=== PATIENT | female | born 1980 | race Caucasian/White ===

== ENCOUNTER 2017-03-14 10:13 | Emergency (ER) | payer BC ==
[2017-03-14 10:16] VITALS: BMI 28.6
[2017-03-14 11:59] LABS: BASO # 0.1 K/uL (0.0-0.2); BASO % 1.1 % (0.0-2.0); EOS # 0.9 K/uL (0.0-0.7); EOS % 12.2 % (0.0-4.0); HEMATOCRIT 37.2 % (34.0-47.0); LYMPH # 1.7 K/uL (1.0-4.3); LYMPH % 24.8 % (20.0-40.0); MEAN CELL VOLUME 88.9 fL (81.0-99.0); MEAN CORPUSCULAR HEMOGLOBIN 29.2 pg (27.0-31.0); MEAN CORPUSCULAR HGB CONC 32.9 g/dL (33.0-37.0); MEAN PLATELET VOLUME 9.7 fL (7.2-11.7); MONO # 0.4 K/uL (0.0-0.8); MONO % 5.7 % (0.0-10.0); RED CELL DISTRIBUTION WIDTH 13.4 % (11.5-14.5)
[2017-03-14 12:00] LABS: RBC URINE 2 /hpf (0-3); URINE BILIRUBIN NEGATIVE (NEGATIVE); URINE BLOOD NEGATIVE (NEGATIVE); URINE COLOR Yellow (YELLOW); URINE GLUCOSE (UA) NORMAL (Normal); URINE KETONE NEGATIVE (NEGATIVE); URINE LEUKOCYTE ESTERASE TRACE Leu/uL (Negative); URINE PROTEIN 1+ mg/dL (NEGATIVE); URINE UROBILINOGEN NORMAL mg/dL (0.2-1.0); WBC URINE 4 /hpf (0-5)
[2017-03-14 12:31] LABS: CHLORIDE 105 mmol/L (98-107); SODIUM 136 mmol/L (132-148)
[2017-03-14 12:34] LABS: ALB/GLOB RATIO 1.4 (1.0-2.1); ALKALINE PHOSPHATASE 43 U/L (38-126); ALT/SGPT 24 U/L (9-52); AST/SGOT 29 U/L (14-36); BILIRUBIN,TOTAL 0.5 mg/dL (0.2-1.3); BLOOD UREA NITROGEN 14 mg/dL (7-17); CARBON DIOXIDE 25 mmol/L (22-30); GFR AFRICAN-AMERICAN > 60; GLUCOSE,RANDOM 93 mg/dL (65-105); TOTAL PROTEIN 6.6 g/dL (6.3-8.3)
[2017-03-14 12:35] LABS: CALCIUM 8.7 mg/dl (8.6-10.4)
[2017-03-14 12:57] LABS: THYROID STIMULATING HORMONE 1.27 mIU/L (0.46-4.68)
--- NOTE | 2017-03-14 13:05 | C.PDOC ---
History Of Present Illness 36 yr old female presents to the ER with complaints of weakness for the past 2 months. Also notes occasional pelvic pain. Pt notes she felt like this when she was previously . States she went to see her PMD when the symptoms started and was told blood reports are negative and she is not . Denies fever, chest pain, SOB, nausea, vomiting, dysuria or incontinence. (-) vaginal discharge (-) back pain (-) vaginal bleeding Time Seen by Provider: 03/14/17 11:15 Chief Complaint (Nursing): Abdominal Pain History Per: Patient History/Exam Limitations: no limitations Onset/Duration Of Symptoms: Persistent (2 months) Past Medical History Reviewed: Historical Data, Nursing Documentation, Vital Signs Vital Signs: Last Vital Signs Temp 97.8 F 03/14/17 14:31 Pulse 68 03/14/17 14:31 Resp 16 03/14/17 14:31 BP 100/62 03/14/17 14:31 Pulse Ox 99 03/14/17 14:31 Family History: States: No Known Family Hx - Social History Hx Alcohol Use: No Hx Substance Use: No - Immunization History Hx Tetanus Toxoid Vaccination: No Hx Influenza Vaccination: No Hx Pneumococcal Vaccination: No Review Of Systems Except As Marked, All Systems Reviewed And Found Negative. Constitutional: Positive for: Weakness. Negative for: Fever Cardiovascular: Negative for: Chest Pain Respiratory: Negative for: Shortness of Breath Gastrointestinal: Negative for: Nausea, Vomiting Genitourinary: Positive for: Pelvic Pain. Negative for: Dysuria, Incontinence Physical Exam - Physical Exam Appears: Non-toxic, No Acute Distress Skin: Warm, Dry, No Rash Head: Atraumatic, Normacephalic Eye(s): bilateral: Normal Inspection, EOMI Nose: Normal Oral Mucosa: Moist Neck: Normal, Normal ROM, Supple Chest: Symmetrical, No Tenderness Cardiovascular: Rhythm Regular, No Murmur Respiratory: Normal Breath Sounds, No Rales, No Stridor, No Wheezing Gastrointestinal/Abdominal: Soft, Tenderness (suprapubic tenderness), No Guarding, No Rebound Back: No CVA Tenderness, No Vertebral Tenderness Extremity: Normal ROM, No Swelling Neurological/Psych: Oriented x3, Normal Speech ED Course And Treatment - Laboratory Results Result Diagrams: 03/14/17 11:49 03/14/17 11:49 O2 Sat by Pulse Oximetry: 97 - CT Scan/US US - Transvaginal Other Rad Studies (CT/US): Read By Radiologist, Radiology Report Reviewed CT/US Interpretation: Pelvic ultrasound. History: . Pain. Comparison : None available. Technique: Real-time sonography was performed through the pelvis utilizing transabdominal and transvaginal techniques. Findings: LMP of 01/15/2017. Uterus: 9.5 x 6.6 x 8.1 centimeters. Heterogeneous echotexture. Retroverted. Cervix measures 3.8 centimeters. Intrauterine . Intrauterine gestational sac measures 1.7 centimeters corresponding to a gestational age of 6 weeks and 0 days. Yolk sac identified measuring 2.6 millimeters. Vev[place]-rump length measures 4.1 millimeters corresponding to a gestational age of 6 weeks and 1 day. heart rate of 88 beats per minute. No free fluid in the pelvic cul-de-sac. Right ovary: 3.6 x 2.4 x 3.6 centimeters. Normal flow. Left ovary: 3.2 x 1.2 x 3.0 centimeters. Normal flow. Impression: Intrauterine corresponding to a gestational age of approximately 6 weeks and 1 day with crown-rump length of 4 millimeters. heart rate of 88 beats per minute. Limited 1st trimester ultrasound for viability purposes only. Continued interval followup with serial ultrasound, serial HCG levels, and gynecological consultation would be helpful if clinically indicated. Progress Note: PLAN: US - Transvaginal, CBC, CMP, HCG & Urinlaysis. On reassessment, patient is resting comfortably, and is in no acute distress. No abdominal pain. Abd soft, non tender. Afebrile. Tolerating PO. Pt notes that she usually has low engery with all her pregnancies. Patient was instructed to follow up with physician/clinic in 1-2 days for further evaluation. Disposition - Disposition Disposition: HOME/ ROUTINE Disposition Time: 14:00 Condition: STABLE Additional Instructions: Your beta today is 30,000. Follow up with your OB doctor or ER in 2-5 days for further evaluation. Return to the emergency department at any time if symptoms persist or worsen. Prescriptions: Multivit/Folic Acid/I [ Plus] 1 tab PO DAILY #30 tab Instructions: (ED) - Clinical Impression Clinical Impression: - PA / DESIGN ENG / Resident Statement MD/DO has reviewed & agrees with the documentation as recorded. - Scribe Statement The provider has reviewed the documentation as recorded by the Scribe Emilee Zimmer All medical record entries made by the Scribe were at my direction and personally dictated by me. I have reviewed the chart and agree that the record accurately reflects my personal performance of the history, physical exam, medical decision making, and the department course for this patient. I have also personally directed, reviewed, and agree with the discharge instructions and disposition.
[2017-03-14 13:06] LABS: THYROID STIMULATING HORMONE 1.24 mIU/L (0.46-4.68)
--- NOTE | 2017-03-14 13:28 | US ---
Pelvic ultrasound History: . Pain. Comparison: None available. Technique: Real-time sonography was performed through the pelvis utilizing transabdominal and transvaginal techniques. Findings: LMP of 01/15/2017. Uterus: 9.5 x 6.6 x 8.1 centimeters. Heterogeneous echotexture. Retroverted. Cervix measures 3.8 centimeters. Intrauterine . Intrauterine gestational sac measures 1.7 centimeters corresponding to a gestational age of 6 weeks and 0 days. Yolk sac identified measuring 2.6 millimeters. [place]-rump length measures 4.1 millimeters corresponding to a gestational age of 6 weeks and 1 day. heart rate of 88 beats per minute. No free fluid in the pelvic cul-de-sac. Right ovary: 3.6 x 2.4 x 3.6 centimeters. Normal flow. Left ovary: 3.2 x 1.2 x 3.0 centimeters. Normal flow. Impression: Intrauterine corresponding to a gestational age of approximately 6 weeks and 1 day with crown-rump length of 4 millimeters. heart rate of 88 beats per minute. Limited 1st trimester ultrasound for viability purposes only. Continued interval followup with serial ultrasound, serial HCG levels, and gynecological consultation would be helpful if clinically indicated.
[2017-03-14] MEDS ORDERED: Sodium Chloride 0.9% 500 ML IV ONE ×2 (13:37→13:45)
[2017-03-14 13:44] LABS: FREE T4 1.04 ng/dL (0.78-2.19)
[2017-03-14 14:32] VITALS: BP 100/62; PULSE 68; RESP 16; TEMP 97.8
[2017-03-14 17:13] VITALS: O2SAT 97
== END 2017-03-14 14:32 | disposition home or self-care (01) ==
LOC: C.ER 10:13
DX: O26.891 Other specified pregnancy related conditions, first trimester (principal); Z3A.01 Less than 8 weeks gestation of pregnancy
CPT/HCPCS: 76805; 76817; 80053; 81001; 82553; 84439; 84443; 84702; 84703; 85025; 96360; 99285; J7040

== ENCOUNTER 2017-03-27 16:20 | Emergency (ER) | payer BC ==
[2017-03-27 16:20] VITALS: BMI 28.6
[2017-03-27 16:42] VITALS: O2SAT 99
[2017-03-27] MEDS ORDERED: Sodium Chloride 0.9% 1,000 ML IV ONE ×2 (17:06→17:32)
[2017-03-27 17:16] LABS: BASO # 0.1 K/uL (0.0-0.2); BASO % 0.8 % (0.0-2.0); EOS # 0.6 K/uL (0.0-0.7); EOS % 5.6 % (0.0-4.0); HEMATOCRIT 37.5 % (34.0-47.0); LYMPH # 1.7 K/uL (1.0-4.3); LYMPH % 17.6 % (20.0-40.0); MEAN CELL VOLUME 88.4 fL (81.0-99.0); MEAN CORPUSCULAR HEMOGLOBIN 29.8 pg (27.0-31.0); MEAN CORPUSCULAR HGB CONC 33.7 g/dL (33.0-37.0); MEAN PLATELET VOLUME 9.9 fL (7.2-11.7); MONO # 0.5 K/uL (0.0-0.8); RED CELL DISTRIBUTION WIDTH 13.2 % (11.5-14.5); WHITE BLOOD COUNT 9.8 K/uL (4.8-10.8)
[2017-03-27 17:17] LABS: RBC URINE 8 /hpf (0-3); URINE BACTERIA RARE (<OCC); URINE BILIRUBIN NEGATIVE (NEGATIVE); URINE BLOOD NEGATIVE (NEGATIVE); URINE COLOR Yellow (YELLOW); URINE GLUCOSE (UA) NORMAL (Normal); URINE KETONE 2+ mg/dL (NEGATIVE); URINE LEUKOCYTE ESTERASE 3+ Leu/uL (Negative); URINE PROTEIN NEGATIVE (NEGATIVE); URINE UROBILINOGEN NORMAL mg/dL (0.2-1.0); WBC URINE 38 /hpf (0-5)
[2017-03-27] MEDS ORDERED: Sodium Chloride 0.9% 1,000 ML ONE (17:19)
[2017-03-27 17:27] LABS: CHLORIDE 99 mmol/L (98-107); SODIUM 135 mmol/L (132-148)
[2017-03-27 17:28] LABS: POTASSIUM 3.7 mmol/L (3.6-5.2)
[2017-03-27 17:30] LABS: ALB/GLOB RATIO 1.1 (1.0-2.1); ALKALINE PHOSPHATASE 52 U/L (38-126); ALT/SGPT 30 U/L (9-52); AST/SGOT 19 U/L (14-36); BILIRUBIN,TOTAL 0.4 mg/dL (0.2-1.3); BLOOD UREA NITROGEN 11 mg/dL (7-17); CALCIUM 8.7 mg/dl (8.6-10.4); CARBON DIOXIDE 24 mmol/L (22-30); GFR AFRICAN-AMERICAN > 60; GLUCOSE,RANDOM 90 mg/dL (65-105)
--- NOTE | 2017-03-27 18:25 | C.PDOC ---
History Of Present Illness Patient is a 36 year old female who presents to the ER with a complaint of persistent nausea, vomiting and generalized weakness x1 week. Patient is currently 8 weeks ; P:3. Denies vaginal bleeding, fever, dysuria, hematuria and abdominal pain. Time Seen by Provider: 03/27/17 16:34 Chief Complaint (Nursing): GI Problem History Per: Patient History/Exam Limitations: no limitations Onset/Duration Of Symptoms: Days (7) Current Symptoms Are (Timing): Still Present Recent travel outside of the [place]: No Past Medical History Reviewed: Historical Data, Nursing Documentation, Vital Signs Vital Signs: Last Vital Signs Temp 98.9 F 03/27/17 18:44 Pulse 84 03/27/17 18:44 Resp 17 03/27/17 18:44 BP 110/72 03/27/17 18:44 Pulse Ox 99 03/27/17 18:44 - Medical History PMH: No Chronic Diseases Surgical History: No Surg Hx Family History: States: Unknown Family Hx - Social History Hx Alcohol Use: No Hx Substance Use: No - Immunization History Hx Tetanus Toxoid Vaccination: No Hx Influenza Vaccination: No Hx Pneumococcal Vaccination: No Review Of Systems Except As Marked, All Systems Reviewed And Found Negative. Constitutional: Positive for: Weakness Gastrointestinal: Positive for: Nausea, Vomiting Physical Exam - Physical Exam Appears: Non-toxic, Other (Mildly uncomfortable) Skin: Normal Color, Warm, Dry Head: Atraumatic, Normacephalic Oral Mucosa: Moist Chest: Symmetrical, No Tenderness Cardiovascular: Rhythm Regular, No Murmur Respiratory: Normal Breath Sounds, No Rales, No Rhonchi, No Wheezing Gastrointestinal/Abdominal: Soft, No Tenderness Neurological/Psych: Oriented x3, Normal Speech, Normal Cognition ED Course And Treatment - Laboratory Results Result Diagrams: 03/27/17 17:13 03/27/17 17:13 O2 Sat by Pulse Oximetry: 99 (Room air) Pulse Ox Interpretation: Normal Progress Note: Blood work and urinalysis ordered. Zofran, pepcid and IV fluids administered. Disposition Counseled Patient/Family Regarding: Studies Performed, Diagnosis, Need For Followup, Rx Given - Disposition Referrals: 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 DENTRO DE 1 SEMANA BEBER MUCHO LQUIDO VOLVER A LA [place]ODY DE EMERGENCIA SI LOS SNTOMAS EMPEORARAN Prescriptions: Doxylamine/Pyridoxine HCl (B6) [Ciera Radford 10-10 mg Tablet] 1 tab PO TID PRN # 30 tablet.dr PRN Reason: Nausea/Vomiting Nitrofurantoin Macrocrystals [Macrobid] 1 cap PO BID #14 cap Ondansetron [Zofran Odt] 4 mg PO Q8 PRN #15 odt PRN Reason: Nausea/Vomiting Instructions: (ED), Acute Nausea and Vomiting (ED) Print Language: PUERTO RICAN - POA Present On Arrival: None - Clinical Impression Clinical Impression: Nausea/vomiting in , UTI in - Scribe Statement The provider has reviewed the documentation as recorded by the Scribjoi Mcclain All medical record entries made by the Scribe were at my direction and personally dictated by me. I have reviewed the chart and agree that the record accurately reflects my personal performance of the history, physical exam, medical decision making, and the department course for this patient. I have also personally directed, reviewed, and agree with the discharge instructions and disposition.
[2017-03-27 18:45] VITALS: BP 110/72; PULSE 84; RESP 17; TEMP 98.9
== END 2017-03-27 18:44 | disposition home or self-care (01) ==
LOC: C.ER 16:20
DX: O23.41 Unspecified infection of urinary tract in pregnancy, first trimester (principal); O21.8 Other vomiting complicating pregnancy; Z3A.08 8 weeks gestation of pregnancy
CPT/HCPCS: 80053; 81001; 84702; 85025; 96361; 96374; 96375; 99284; J2405; J7040

== ENCOUNTER 2017-04-07 21:25 | Emergency (ER) | payer BC ==
[2017-04-07 21:25] VITALS: BMI 28.6
[2017-04-07] MEDS ORDERED: Sodium Chloride 0.9% 1,000 ML IV ONE (22:59)
[2017-04-07] MEDS ORDERED: Dextrose 5%/0.45% NS 1,000 ML IV ONE ×2 (23:01→23:49)
[2017-04-07 23:49] LABS: BASO # 0.1 K/uL (0.0-0.2); BASO % 0.6 % (0.0-2.0); EOS # 0.5 K/uL (0.0-0.7); EOS % 4.7 % (0.0-4.0); LYMPH # 1.9 K/uL (1.0-4.3); LYMPH % 18.7 % (20.0-40.0); MEAN CELL VOLUME 88.7 fL (81.0-99.0); MEAN CORPUSCULAR HEMOGLOBIN 29.6 pg (27.0-31.0); MEAN CORPUSCULAR HGB CONC 33.3 g/dL (33.0-37.0); MEAN PLATELET VOLUME 9.6 fL (7.2-11.7); MONO # 0.5 K/uL (0.0-0.8); MONO % 4.6 % (0.0-10.0); NEUT # 7.1 K/uL (1.8-7.0); NEUT % 71.4 % (50.0-75.0); RBC 4.41 Mil/uL (3.80-5.20); RED CELL DISTRIBUTION WIDTH 12.9 % (11.5-14.5); WHITE BLOOD COUNT 9.9 K/uL (4.8-10.8)
[2017-04-07] MEDS ORDERED: Sodium Chloride 0.9% 1,000 ML ONE (23:49)
[2017-04-07 23:57] LABS: ALBUMIN 3.7 g/dL (3.5-5.0)
[2017-04-08] LABS: AST/SGOT 32 U/L (14-36); GFR AFRICAN-AMERICAN > 60; GFR NON-AFRICAN AMERICAN > 60
[2017-04-08 00:01] LABS: ALB/GLOB RATIO 1.2 (1.0-2.1); ALT/SGPT 38 U/L (9-52); BLOOD UREA NITROGEN 9 mg/dL (7-17); CALCIUM 8.4 mg/dl (8.6-10.4)
--- NOTE | 2017-04-08 00:26 | C.PDOC ---
History Of Present Illness <Althea Benedict - Last Filed: 04/08/17 00:40> <Dyllan Rodrigez E - Last Filed: 04/08/17 06:18> <José Tijerina - Last Filed: 04/08/17 10:10> 37 year old female 10 weeks who presents to the ER complaining of persistent nausea and vomiting. Patient was seen on 03/14 and 03/27 for the same complaint; she had a US done on 03/14 which showed a live IUP. Patient is P: 3. Patient reports the medications given to her on her last 2 visits are not working. Patient is also complaining of pain to her throat, chest, breasts, and epigastric region. Denies fever, chills, dysuria, or vaginal bleeding. (Althea Benedict) History Per: Patient History/Exam Limitations: no limitations Onset/Duration Of Symptoms: Days Current Symptoms Are (Timing): Still Present Location Of Pain/Discomfort: Epigastric Radiation Of Pain To:: None Quality Of Discomfort: Unable To Describe Associated Symptoms: Nausea, Vomiting. denies: Fever, Chills, Urinary Symptoms Exacerbating Factors: None Alleviating Factors: None Recent travel outside of the [place]: No Abnormal Vaginal Bleeding: No <Althea Benedict - Last Filed: 04/08/17 00:40> <Dyllan Rodrigez - Last Filed: 04/08/17 06:18> <José Tijerina P - Last Filed: 04/08/17 10:10> Time Seen by Provider: 04/07/17 22:59 Chief Complaint (Nursing): Abdominal Pain Past Medical History Reviewed: Historical Data, Nursing Documentation, Vital Signs - Medical History PMH: No Chronic Diseases Surgical History: No Surg Hx Family History: States: Unknown Family Hx - Social History Hx Alcohol Use: No Hx Substance Use: No - Immunization History Hx Tetanus Toxoid Vaccination: No Hx Influenza Vaccination: No Hx Pneumococcal Vaccination: No <Althea Benedict - Last Filed: 04/08/17 00:40> Review Of Systems Constitutional: Negative for: Fever, Chills Gastrointestinal: Positive for: Nausea, Vomiting Genitourinary: Negative for: Dysuria, Hematuria, Vaginal Discharge, Vaginal Bleeding <Althea Benedict - Last Filed: 04/08/17 00:40> Physical Exam - Physical Exam Appears: Non-toxic, Other (Miserable, Weak, Awake, Alert) Skin: Normal Color, Warm, Dry Head: Atraumatic, Normacephalic Oral Mucosa: Moist Chest: Symmetrical, No Tenderness Cardiovascular: Rhythm Regular, No Murmur Respiratory: Normal Breath Sounds, No Rales, No Rhonchi, No Wheezing Gastrointestinal/Abdominal: Soft, No Tenderness Neurological/Psych: Oriented x3, Normal Speech, Normal Cognition <Althea Benedict M - Last Filed: 04/08/17 00:40> ED Course And Treatment - Laboratory Results Result Diagrams: 04/07/17 23:43 04/07/17 23:43 O2 Sat by Pulse Oximetry: 98 (Room air) Pulse Ox Interpretation: Normal <Althea Benedict M - Last Filed: 04/08/17 00:40> - Laboratory Results Result Diagrams: 04/07/17 23:43 04/07/17 23:43 Lab Interpretation: Normal (Quant 185,110, ketones neg.) Urine POC: Positive - CT Scan/US US Other Rad Studies (CT/US): Read By Radiologist, Radiology Report Reviewed CT/US Interpretation: IMPRESSION: 1. Single live intrauterine gestation. 2. Subchorionic hemorrhage. Progress Note: US on 03/14 showed live IUP at 6 weeks, HR of 88 bpm. Reevaluation Time: 06:12 (hungry, tolerating PO liquids) Reassessment Condition: Improved - Physician Consult Information Outcome Of Conversation: 0240: d/w Dr. Coyne OB Counter Clerk [employer]- will see pt when able. Inquired to pt's stability and assured pt is stable. Requested pelvic US. 0600: pelvic US results wnl for this . Nurses inquired from Dr. Coyne when she will be able to asses this consult pt. Dr. Coyne will sign over the pt to the oncoming OB Counter Clerk [employer] @ 0700. Pt comfortable, tolerating PO liquids. <Dyllan Rodrigez E - Last Filed: 04/08/17 06:18> - Laboratory Results Result Diagrams: 04/07/17 23:43 04/07/17 23:43 <José Tijerina P - Last Filed: 04/08/17 10:10> Medical Decision Making <Althea Benedict - Last Filed: 04/08/17 00:40> <Dyllan Rodrigez - Last Filed: 04/08/17 06:18> <José Tijerina - Last Filed: 04/08/17 10:10> Medical Decision Making: Plans: * Dextrose * Zofran * IV fluids * Urinalysis (Althea Benedict) Hyperemisis Gravidarum, Controlled in ED Pending OB consult as pt requesting inpatient eval. 699: signed over to Dr. Tijerina, pt stable. (Dyllan Rodrigez) 1008 pt eval by OB and cleared for dc home- rec rx phenergan for nausea. pt tolerated tray of food without n/v. follow up in clinic. (José Tijerina) Disposition Discussed With : Senait A [facility] Doctor Will See Patient In The: Hospital Counseled Patient/Family Regarding: Studies Performed, Diagnosis - Disposition Disposition Time: 00:27 <Althea Benedict - Last Filed: 04/08/17 00:40> - Disposition Disposition Time: 07:00 <Dyllan Rodrigez - Last Filed: 04/08/17 06:18> <José Tijerina - Last Filed: 04/08/17 10:10> - Disposition Condition: GOOD - Clinical Impression Clinical Impression: Hyperemesis gravidarum - Scribe Statement The provider has reviewed the documentation as recorded by the Scribe <Althea Benedict - Last Filed: 04/08/17 00:40> <Dyllan Rodrigez - Last Filed: 04/08/17 06:18> <José Tijerina - Last Filed: 04/08/17 10:10> - Scribe Statement Lacho Mcclain All medical record entries made by the Scribe were at my direction and personally dictated by me. I have reviewed the chart and agree that the record accurately reflects my personal performance of the history, physical exam, medical decision making, and the department course for this patient. I have also personally directed, reviewed, and agree with the discharge instructions and disposition. (Althea Benedict) Physician Patient Turnover Patient Signed Over To: Dyllan Rodrigez Handoff Comments: hyperemesis, pending OB eval <Althea Benedict - Last Filed: 04/08/17 00:40>
[2017-04-08 00:58] LABS: SQUAMOUS EPITHIAL 7 /hpf (0-5); URINE BACTERIA RARE (<OCC); URINE BILIRUBIN NEGATIVE (NEGATIVE); URINE BLOOD NEGATIVE (NEGATIVE); URINE CLARITY Hazy (Clear); URINE COLOR Yellow (YELLOW); URINE GLUCOSE (UA) NORMAL (Normal); URINE LEUKOCYTE ESTERASE TRACE Leu/uL (Negative); URINE NITRATE NEGATIVE (NEGATIVE); URINE PROTEIN 1+ mg/dL (NEGATIVE); URINE UROBILINOGEN NORMAL mg/dL (0.2-1.0)
[2017-04-08] MEDS ORDERED: Sodium Chloride 0.9% 1,000 ML IV ONE (02:25)
[2017-04-08] MEDS ORDERED: Sodium Chloride 0.9% 1,000 ML ONE (02:27)
[2017-04-08 07:37] VITALS: RESP 16; O2SAT 97
--- NOTE | 2017-04-08 08:51 | CP.PCM.CON ---
<Dipika Chauhan - Last Filed: 04/08/17 08:53> History of Present Illness - History of Present Illness History of Present Illness: 37 yo at 11w6d by LMP 01/15/17 presents to the ED for nausea and NBNB vomiting. Patient has been seen in the ED on 03/14 and 03/27 for the same complaint. Patient reports that she vomits approx 30-40 times a day. Patient was taking Ondansetron and Diclegis with no relief. Last time patient was able to keep food down was three days ago and the last time she vomited was 3am this morning. Reports that she is no longer nauseous but she feels dizzy and tired. Denies fevers, chills, headache, CP, SOB, abdominal pain, diarrhea, constipation , vaginal bleeding. Reports that she has not recieved any care to date. OB Hx: G1 - 2003 SAB at 12 weeks, D+C G2 - 2005 at term, no complications G3 - 2006 at term, no complications G4 - 2010 at term, no complications G5 - Current SAW MAN Hx: LMP - 01/15/17 [facility] - 13/regular/7 days Denies hx of STDS, fibroids, ovarian cysts Denies hx of abnormal paps Allergies: NKDA Medications: Diclegis, Ondansetron, PNV Medical Hx: denies Surgical Hx: denies Social Hx: denies alcohol, tobacco, drug use Family Hx: denies Past Patient History - Infectious Disease Hx of Infectious Diseases: None - Past Social History Smoking Status: Never Smoked - PSYCHIATRIC Hx Substance Use: No - SURGICAL HISTORY Hx Surgeries: No - ANESTHESIA Hx Anesthesia: No Meds Allergies/Adverse Reactions: Allergies Allergy/AdvReac Type Severity Reaction Status Date / Time No Known Allergies Allergy Verified 04/07/17 21:36 Physical Exam - Constitutional Appears: Non-toxic, No Acute Distress - Head Exam Head Exam: ATRAUMATIC, NORMAL INSPECTION - Eye Exam Eye Exam: EOMI, Normal appearance - ENT Exam ENT Exam: Mucous Membranes Moist - Respiratory Exam Respiratory Exam: Clear to Auscultation Bilateral, NORMAL BREATHING PATTERN - Cardiovascular Exam Cardiovascular Exam: REGULAR RHYTHM, +S1, +S2 - GI/Abdominal Exam GI & Abdominal Exam: Normal Bowel Sounds, Soft. absent: Tenderness - Extremities Exam Extremities exam: Positive for: full ROM, normal inspection, pedal pulses present - Back Exam Back exam: NORMAL INSPECTION - Neurological Exam Neurological exam: Alert, Oriented x3 - Psychiatric Exam Psychiatric exam: Normal Affect, Normal Mood - Skin Skin Exam: Normal Color, Warm Results - Vital Signs Recent Vital Signs: Last Vital Signs Temp 98.6 F 04/08/17 07:20 Pulse 78 04/08/17 07:20 Resp 16 04/08/17 07:20 BP 96/64 L 04/08/17 07:20 Pulse Ox 97 04/08/17 07:20 - Labs Result Diagrams: 04/07/17 23:43 04/07/17 23:43 Labs: Laboratory Results - last 24 hr 04/07/17 04/07/17 04/08/17 23:43 23:43 00:24 WBC 9.9 RBC 4.41 Hgb 13.0 Hct 39.1 MCV 88.7 MCH 29.6 MCHC 33.3 RDW 12.9 Plt Count 248 MPV 9.6 Neut % (Auto) 71.4 Lymph % (Auto) 18.7 L Marion % (Auto) 4.6 Eos % (Auto) 4.7 H Baso % (Auto) 0.6 Neut # 7.1 H Lymph # 1.9 Marion # 0.5 Eos # 0.5 Baso # 0.1 Sodium 135 Potassium 3.6 Chloride 100 Carbon Dioxide 25 Anion Gap 14 BUN 9 Creatinine 0.5 L Est GFR ( Amer) > 60 Est GFR (Non-Af Amer) > 60 Random Glucose 85 Calcium 8.4 L Total Bilirubin 0.5 AST 32 ALT 38 Alkaline Phosphatase 54 Total Protein 6.9 Albumin 3.7 Globulin 3.2 Albumin/Globulin Ratio 1.2 Beta HCG, Quant 882012.00 Urine Color Yellow Urine Clarity Hazy Urine pH 7.0 Ur Specific Hemlock 1.026 Urine Protein 1+ H Urine Glucose (UA) Normal Urine Ketones 2+ H Urine Blood Negative Urine Nitrate Negative Urine Bilirubin Negative Urine Urobilinogen Normal Ur Leukocyte Esterase Trace Urine WBC (Auto) 11 H Urine RBC (Auto) 3 Ur Squamous Epith Cells 7 H Urine Bacteria Rare Serum Ketones Negative <Lali Flaherty - Last Filed: 04/08/17 10:06> History of Present Illness - History of Present Illness History of Present Illness: 37 y/o @ 10 wks by US c/o of nause and vomiting sice last night and thoughout pregnncy. pt reports non bloody, no billious ovmiitng Upon evlation pt wsa able to eat full tray of food and keep po intake down . pt reports feeling much better. pt states she has tried diclegis and zofran with some relief. Pt denies any current n/v, cp, sob, lighthheadness, dizzyness, CP, SOB > Pt states she feels much better after receiving hydrations. t reports previus also with n/v but improved with duration. Review of Systems - Constitutional Constitutional: As Per HPI - EENT Eyes: As Per HPI Ears: As Per HPI - Cardiovascular Cardiovascular: As Per HPI - Respiratory Respiratory: As Per HPI - Gastrointestinal Gastrointestinal: As Per HPI - Genitourinary Genitourinary: As Per HPI - Reproductive: Female Reproductive:Female: As Per HPI Past Patient History - Past Medical History & Family History Past Medical History?: No - Past Social History Alcohol: None Drugs: Denies Home Situation {Lives}: With Family Physical Exam - Constitutional Appears: Non-toxic, No Acute Distress - Head Exam Head Exam: ATRAUMATIC, NORMAL INSPECTION - Eye Exam Eye Exam: EOMI, Normal appearance - ENT Exam ENT Exam: Mucous Membranes Moist - Neck Exam Neck exam: Positive for: Normal Inspection - GI/Abdominal Exam GI & Abdominal Exam: Normal Bowel Sounds, Soft Additional comments: non tender, no guarding, no rebound tenderns,s no rigidity Results - Vital Signs Recent Vital Signs: Last Vital Signs Temp 98.6 F 04/08/17 07:20 Pulse 78 04/08/17 07:20 Resp 16 04/08/17 07:20 BP 96/64 L 04/08/17 07:20 Pulse Ox 97 04/08/17 07:20 - Labs Result Diagrams: 04/07/17 23:43 04/07/17 23:43 Labs: Laboratory Results - last 24 hr 04/07/17 04/07/17 04/08/17 23:43 23:43 00:24 WBC 9.9 RBC 4.41 Hgb 13.0 Hct 39.1 MCV 88.7 MCH 29.6 MCHC 33.3 RDW 12.9 Plt Count 248 MPV 9.6 Neut % (Auto) 71.4 Lymph % (Auto) 18.7 L Marion % (Auto) 4.6 Eos % (Auto) 4.7 H Baso % (Auto) 0.6 Neut # 7.1 H Lymph # 1.9 Marion # 0.5 Eos # 0.5 Baso # 0.1 Sodium 135 Potassium 3.6 Chloride 100 Carbon Dioxide 25 Anion Gap 14 BUN 9 Creatinine 0.5 L Est GFR ( Amer) > 60 Est GFR (Non-Af Amer) > 60 Random Glucose 85 Calcium 8.4 L Total Bilirubin 0.5 AST 32 ALT 38 Alkaline Phosphatase 54 Total Protein 6.9 Albumin 3.7 Globulin 3.2 Albumin/Globulin Ratio 1.2 Beta HCG, Quant 483342.00 Urine Color Yellow Urine Clarity Hazy Urine pH 7.0 Ur Specific [place] 1.026 Urine Protein 1+ H Urine Glucose (UA) Normal Urine Ketones 2+ H Urine Blood Negative Urine Nitrate Negative Urine Bilirubin Negative Urine Urobilinogen Normal Ur Leukocyte Esterase Trace Urine WBC (Auto) 11 H Urine RBC (Auto) 3 Ur Squamous Epith Cells 7 H Urine Bacteria Rare Serum Ketones Negative Assessment & Plan (1) Nausea/vomiting in Assessment and Plan: @ 10 wks with n/v in pregnnacy currently stable, tolerting po intake -can doretha peace. howeer can do trial of phenergan 25mg po q 8 hour -can follow up outpatient for pnc -referred ot clinic -BRAT diet advsied, precautions given. Status: Acute
--- NOTE | 2017-04-08 10:12 | US ---
PROCEDURE: First trimester ultrasound HISTORY: high beta for 10 wk preg, ? molar COMPARISON: 03/14/2017. TECHNIQUE: Standard protocol for this study/examination. FINDINGS: LMP: 01/15/2017 Prior examinations from the current : 03/14/2017 TECHNIQUE: Real-time 2D imaging, duplex and color Doppler. FINDINGS: Cardiac activity: Present Rate: 184 BPM Measurements: Norrie rump length: 2.63 cm Gestational age based on CRL 9 weeks 3 days Gestational age based on gestational sac measurement 9 weeks 6 days Gestational age derived from LMP: 11 weeks 6 days CRISTINA based on LMP: 10/22/2017 CRISTINA based on biometry: 11/06/2017 Gestational concordance documented Yolk sac identified Uterus: Unremarkable. No Cervical abnormalities: Negative examination for cervical dilatation or effacement. Cervical length 3.16 cm Subchorionic hemorrhage: Adjacent to the gestational sac 1.3 x 1.8 x 3.2 cm ADNEXA: Right: 1.8 x 2.8 x 3.5 cm. Normal Doppler arterial waveform documented. Left: 3.1 x 2.8 cm. Normal Doppler arterial waveform documented Fluid in the cul-de-sac: None IMPRESSION: Nine weeks 5 days live intrauterine gestation. Adequate interval progression compared to the prior study. Subchorionic hemorrhage identified. Concordant results (preliminary interpretation) provided by [email or web address]. Procedure Completed: 04:22 Preliminary ([facility]) Report: Dictated and Authenticated: 05:06 Final Interpretation: 10:11. April 08, 2017.
[2017-04-08 10:51] VITALS: BP 108/72; PULSE 88; TEMP 99
== END 2017-04-08 10:56 | disposition home or self-care (01) ==
LOC: C.ER 21:25
DX: O21.0 Mild hyperemesis gravidarum (principal); Z3A.09 9 weeks gestation of pregnancy
CPT/HCPCS: 76801; 80053; 81001; 82009; 84702; 85025; 96361; 96374; 96376; 99285; J2405; J7040; J7042

== ENCOUNTER 2017-04-10 12:39 | Emergency (ER) | payer BC ==
[2017-04-10 12:46] VITALS: BMI 26.4
[2017-04-10 12:48] VITALS: RESP 18
[2017-04-10] MEDS ORDERED: Sodium Chloride 0.9% 1,000 ML IV ONE ×2 (13:21→14:55)
--- NOTE | 2017-04-10 13:23 | C.PDOC ---
History Of Present Illness 37 year old female presents to the ED with complaints of intractable nausea and vomiting for approximately 4 weeks with associated abdominal cramping with vomiting. Patient states she is approximately 10 weeks gestational age and symptoms are nonstop and occur day and night. She notes she has visited [facility] for symptoms and medications given had no relief. Patient denies vaginal bleeding, significant abdominal pain, or fever. Time Seen by Provider: 04/10/17 13:02 Chief Complaint (Nursing): GI Problem History Per: Patient History/Exam Limitations: no limitations Onset/Duration Of Symptoms: Persistent (4 weeks ) Reports Recently: Treated By A Physician Recent travel outside of the [place]: No Additional History Per: Prior Records Past Medical History Reviewed: Historical Data, Nursing Documentation, Vital Signs Vital Signs: Last Vital Signs Temp 98.3 F 04/10/17 12:46 Pulse 88 04/10/17 12:46 Resp 18 04/10/17 12:46 BP 118/75 04/10/17 12:46 Pulse Ox 97 04/10/17 13:25 Family History: States: Other Other Family History: non-contributory - Social History Hx Alcohol Use: No Hx Substance Use: No - Immunization History Hx Tetanus Toxoid Vaccination: Yes Hx Influenza Vaccination: Yes Hx Pneumococcal Vaccination: Yes Review Of Systems Constitutional: Negative for: Fever, Chills Cardiovascular: Negative for: Chest Pain, Palpitations Respiratory: Negative for: Cough, Shortness of Breath Gastrointestinal: Positive for: Nausea, Vomiting, Other (abdominal cramping ). Negative for: Diarrhea Genitourinary: Negative for: Vaginal Bleeding Physical Exam - Physical Exam Appears: Non-toxic, No Acute Distress Skin: Warm, Dry Head: Atraumatic Eye(s): bilateral: Normal Inspection, PERRL, EOMI Oral Mucosa: Moist Neck: Supple Chest: Symmetrical, No Deformity Cardiovascular: Rhythm Regular Respiratory: Normal Breath Sounds, No Rhonchi, No Wheezing Gastrointestinal/Abdominal: Soft, No Tenderness, No Distention, No Guarding, No Rebound Extremity: Normal ROM, No Tenderness Neurological/Psych: Oriented x3 ED Course And Treatment - Laboratory Results Result Diagrams: 04/10/17 14:06 04/10/17 13:49 O2 Sat by Pulse Oximetry: 97 (room air ) Medical Decision Making Medical Decision Making: OB Dr Cooper came and eval the pt in the ED. 1605 pt stable, no active vomiting at this time. tolerating po. Disposition - Disposition Referrals: [facility] at [facility] [Outside] Disposition: HOME/ ROUTINE Disposition Time: 16:05 Condition: STABLE Prescriptions: Ondansetron ODT [Zofran ODT] 4 mg PO Q6H PRN #20 odt PRN Reason: Nausea/Vomiting Instructions: Hyperemesis Gravidarum (ED) Forms: General Discharge Instructions - Clinical Impression Clinical Impression: Hyperemesis gravidarum - Scribe Statement The provider has reviewed the documentation as recorded by the Scribjoi Brooks All medical record entries made by the Susyibjoi were at my direction and personally dictated by me. I have reviewed the chart and agree that the record accurately reflects my personal performance of the history, physical exam, medical decision making, and the department course for this patient. I have also personally directed, reviewed, and agree with the discharge instructions and disposition.
[2017-04-10] MEDS ORDERED: Sodium Chloride 0.9% 1,000 ML ONE ×2 (13:45→15:18)
[2017-04-10 14:02] LABS: ALBUMIN 4.1 g/dL (3.5-5.0)
[2017-04-10 14:05] LABS: ALB/GLOB RATIO 1.2 (1.0-2.1); AST/SGOT 47 U/L (14-36); BLOOD UREA NITROGEN 12 mg/dL (7-17); GFR AFRICAN-AMERICAN > 60; GFR NON-AFRICAN AMERICAN > 60
[2017-04-10 14:06] LABS: ALT/SGPT 61 U/L (9-52); CALCIUM 9.1 mg/dl (8.6-10.4)
[2017-04-10 14:20] LABS: BASO # 0.1 K/uL (0.0-0.2); BASO % 0.8 % (0.0-2.0); EOS # 0.4 K/uL (0.0-0.7); EOS % 4.4 % (0.0-4.0); HEMOGLOBIN 12.9 g/dL (11.0-16.0); LYMPH # 1.6 K/uL (1.0-4.3); MEAN CELL VOLUME 88.6 fL (81.0-99.0); MEAN CORPUSCULAR HEMOGLOBIN 29.7 pg (27.0-31.0); MEAN CORPUSCULAR HGB CONC 33.5 g/dL (33.0-37.0); MEAN PLATELET VOLUME 9.6 fL (7.2-11.7); MONO # 0.4 K/uL (0.0-0.8); MONO % 4.4 % (0.0-10.0); NEUT # 6.3 K/uL (1.8-7.0); NEUT % 72.4 % (50.0-75.0); NRBC % 0.1 % (0.0-2.0); RBC 4.36 Mil/uL (3.80-5.20); RED CELL DISTRIBUTION WIDTH 13.3 % (11.5-14.5); WHITE BLOOD COUNT 8.6 K/uL (4.8-10.8)
--- NOTE | 2017-04-10 15:34 | CP.PCM.CON ---
History of Present Illness - History of Present Illness History of Present Illness: OBGYN Consult HPI 37 y/o female at 9 weeks and 5 days by ultrasound done , presents to ed with c/o nausea and vomiting.Patient was seen on 04/08/2017 and was discharged home on phenergan, zofran and diclegis.Patient states that after she went home she felt nauseous again.She later started vomiting.She took zofran once yesterday and took 1 tablet of diclegis today.Patient has till this time not taken phenergan.Patient denies vaginal bleeding, abdominal pain, fever or chills She spits sometimes and sometimes vomits. 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 Hx: LMP - 01/15/17 [place] - 13//7 days Denies hx of STDS, fibroids, ovarian cysts Denies hx of abnormal paps Allergies: NKDA Medications: Diclegis, Ondansetron, PNV Medical Hx: denies Surgical Hx: denies Social Hx: denies alcohol, tobacco, drug use Family Hx: denies Review of Systems - Review of Systems All systems: reviewed and no additional remarkable complaints except - Gastrointestinal Gastrointestinal: Nausea, Vomiting - Menstruation Menstruation: Amenorrhea Past Patient History - Infectious Disease Hx of Infectious Diseases: None - Past Medical History & Family History Past Medical History?: No - Past Social History Smoking Status: Never Smoked - CARDIAC Hx Angina: No - PULMONARY Hx Respiratory Disorders: No - GASTROINTESTINAL Hx Gastrointestinal Disorders: No - GENITOURINARY/GYNECOLOGICAL LMP:: 01/15/2017 : 5 Para: 3 - PSYCHIATRIC Hx Substance Use: No - SURGICAL HISTORY Hx Surgeries: No - ANESTHESIA Hx Anesthesia: No Meds Allergies/Adverse Reactions: Allergies Allergy/AdvReac Type Severity Reaction Status Date / Time No Known Allergies Allergy Verified 04/10/17 12:44 - Medications Medications: Current Medications Sodium Chloride (Sodium Chloride 0.9%) 1,000 mls @ 1,000 mls/hr IV .Q1H ONE Stop: 04/10/17 15:54 Physical Exam - Constitutional Appears: Well, No Acute Distress - Respiratory Exam Respiratory Exam: Clear to Auscultation Bilateral, NORMAL BREATHING PATTERN - Cardiovascular Exam Cardiovascular Exam: REGULAR RHYTHM - GI/Abdominal Exam GI & Abdominal Exam: Soft. absent: Rebound, Tenderness - Extremities Exam Extremities exam: Negative for: calf tenderness - Neurological Exam Neurological exam: Alert, Normal Gait, Oriented x3 - Psychiatric Exam Psychiatric exam: Normal Affect, Normal Mood - Skin Skin Exam: Normal Color Results - Vital Signs Recent Vital Signs: Last Vital Signs Temp 98.3 F 04/10/17 12:46 Pulse 88 04/10/17 12:46 Resp 18 04/10/17 12:46 BP 118/75 04/10/17 12:46 Pulse Ox 97 04/10/17 13:25 - Labs Result Diagrams: 04/10/17 14:06 04/10/17 13:49 Labs: Laboratory Results - last 24 hr 04/10/17 04/10/17 13:49 14:06 WBC 8.6 RBC 4.36 Hgb 12.9 Hct 38.6 MCV 88.6 MCH 29.7 MCHC 33.5 RDW 13.3 Plt Count 227 MPV 9.6 Neut % (Auto) 72.4 Lymph % (Auto) 18.0 L [place] % (Auto) 4.4 Eos % (Auto) 4.4 H Baso % (Auto) 0.8 Neut # 6.3 Lymph # 1.6 [place] # 0.4 Eos # 0.4 Baso # 0.1 Sodium 136 Potassium 3.7 Chloride 101 Carbon Dioxide 22 Anion Gap 17 BUN 12 Creatinine 0.5 L Est GFR ( Amer) > 60 Est GFR (Non-Af Amer) > 60 Random Glucose 77 Calcium 9.1 Total Bilirubin 0.8 AST 47 H D ALT 61 H D Alkaline Phosphatase 54 Total Protein 7.6 Albumin 4.1 Globulin 3.5 Albumin/Globulin Ratio 1.2 Assessment & Plan - Assessment and Plan (Free Text) Assessment: 37 y/o at 9 weeks and 5 days by ultrasound done 04/10/2017 with nausea and vomiting of Patient received zofran after which she feels little better and is not vomiting.still has some nausea.Reglan ordered Patient to be discharged after she is able to tolerate po Past visits to er reviewed with patient.Patient was advised to take phenergan along with zofran and diclegis 2 days ago but she did not take the meds as prescribed explained to the patient about taking meds as prescribed.Advised to take diclegis there times daily.Use zofran 4mg every 6 hours and add phenergen 25 mg very 6 hours as needed for nausea and vomiting.discussed taking pepcid daily as well.Advised to drink water and follow brat diet.avoid spicy foods.use gingerale or jameel tea. Follow up in clinic in 1-2 days
[2017-04-10 15:42] LABS: SQUAMOUS EPITHIAL 4 /hpf (0-5); URINE BACTERIA RARE (<OCC); URINE BILIRUBIN NEGATIVE (NEGATIVE); URINE BLOOD NEGATIVE (NEGATIVE); URINE CLARITY Hazy (Clear); URINE COLOR Yellow (YELLOW); URINE GLUCOSE (UA) NORMAL (Normal); URINE LEUKOCYTE ESTERASE 2+ Leu/uL (Negative); URINE NITRATE NEGATIVE (NEGATIVE); URINE PROTEIN 1+ mg/dL (NEGATIVE); URINE UROBILINOGEN NORMAL mg/dL (0.2-1.0)
[2017-04-10 16:18] VITALS: BP 94/57; PULSE 77; TEMP 98.5; O2SAT 100
== END 2017-04-10 16:25 | disposition home or self-care (01) ==
LOC: C.ER 12:39
DX: O21.0 Mild hyperemesis gravidarum (principal); Z3A.10 10 weeks gestation of pregnancy
CPT/HCPCS: 80053; 81001; 85025; 96361; 96374; 96375; 99285; J2405; J2765; J7040

== ENCOUNTER 2017-08-16 10:08 | Emergency (ER) | payer BC ==
[2017-08-16 10:17] VITALS: BMI 29.0
[2017-08-16 10:21] VITALS: BP 108/68; PULSE 95; RESP 18; TEMP 97.8; O2SAT 99
--- NOTE | 2017-08-16 11:27 | C.PDOC ---
History Of Present Illness 37 yr old female who is 29 weeks , presents to the ER for evaluation of painful lesions on her palate developed 4 days ago associated with nasal congestion and runny nose. Patient states she has difficulty talking and eating due to painful lesions. Otherwise, pt denies high fever, chills, drooling, throat pain or swelling, neck pain, chest pain, dyspnea, diaphoresis, cough, wheezing, nausea, vomiting, abdominal pain, denies vaginal bleeding or discharges. Ambulate to ED for evaluation, not in any apparent distress. Pt admits, (+) care, denies any complication during current . Time Seen by Provider: 08/16/17 11:16 Chief Complaint (Nursing): ENT Problem History Per: Patient History/Exam Limitations: None Onset/Duration Of Symptoms: Days (4) Current Symptoms Are (Timing): Still Present Past Medical History Reviewed: Historical Data, Nursing Documentation, Vital Signs Vital Signs: Last Vital Signs Temp 97.8 F 08/16/17 10:17 Pulse 95 H 08/16/17 10:17 Resp 18 08/16/17 10:17 BP 108/68 08/16/17 10:17 Pulse Ox 99 08/16/17 17:17 Family History: States: No Known Family Hx - Social History Hx Alcohol Use: No Hx Substance Use: No - Immunization History Hx Tetanus Toxoid Vaccination: Yes Hx Influenza Vaccination: Yes Hx Pneumococcal Vaccination: Yes Review Of Systems Except As Marked, All Systems Reviewed And Found Negative. Constitutional: Negative for: Fever, Chills ENT: Positive for: Other ((+) Painful lesions on the palate.). Negative for: Throat Pain, Throat Swelling Cardiovascular: Negative for: Chest Pain Gastrointestinal: Negative for: Nausea, Vomiting, Abdominal Pain Genitourinary: Negative for: Vaginal Bleeding Neurological: Negative for: Weakness, Numbness Physical Exam - Physical Exam Appears: Well, Non-toxic, No Acute Distress Skin: Normal Color, Warm, Dry, No Rash Head: Normacephalic Eye(s): bilateral: PERRL Ear(s): Bilateral: Normal Nose: No Flaring, Discharge (B/L nasal congestion with scant clear rhinorrhea) Oral Mucosa: Moist, No Drooling, No Trismus, Other ((+)small tender aphtous ulcer over soft palate on erythematous base. ) Tongue: Normal Appearing Lips: Normal Appearing Teeth: Dentures (full upper dunture) Throat: No Erythema, No Exudate, No Drooling, Other (uvula midline, no edema.) Neck: Trachea Midline, Supple Cardiovascular: Rhythm Regular, No Murmur, No JVD Respiratory: No Decreased Breath Sounds, No Accessory Muscle Use, No Stridor, No Wheezing Gastrointestinal/Abdominal: Soft, No Tenderness, Other (Gravid) Back: No CVA Tenderness Extremity: No Pedal Edema Neurological/Psych: Oriented x3, Normal Speech ED Course And Treatment O2 Sat by Pulse Oximetry: 99 (RA) Pulse Ox Interpretation: Normal Progress Note: On re-eval, pt is afebrile, hemodynamicaly stable. non-toxic. Tolerate Po well in ED. PulsOE 99% RA. ENT: small aphtous ulcer noted to soft palat along upper denture line. NO edema. uvula midline, no edema.Neck: Supple, (-) meningeal sign. Lungs: CTA B/L, BS equal B/L. Abd: Gravid. back: (-) CVA tenderness. no peripheral edema. Pt advised on course of ds. ref. to f/u with ENT, DIGITAL CONTENT SPECIALIST in 2-3 days for re-eavl. return if any new changes. Medical Decision Making Medical Decision Making: PLAN: * Tylenol PO * Prednisone PO Disposition Counseled Patient/Family Regarding: Diagnosis, Need For Followup, Rx Given - Disposition Referrals: [facility] at [facility] [Outside] Glenn Keith MD [Staff Provider] - Disposition: HOME/ ROUTINE Disposition Time: 11:28 Condition: STABLE Additional Instructions: ENCOURAGE FLUIDS STOP WEARING UPPER DENTURE FOR 1 WEEK TAKE MEDICATION PRESCRIBED FOLLOW UP WITH PMD, ENT IN 2-3 DAYS FOR RE-EVALUATION. RETURN TO ED IF ANY WORSENING OR NEW CHANGES. Prescriptions: Lidocaine 2% Viscous 1 ml TOP Q4 #15 ml Prednisone [Deltasone] 20 mg PO DAILY #3 tablet Instructions: Canker Sores (ED), Viral Syndrome (ED) Forms: [email or web address] (Vietnamese) - Clinical Impression Clinical Impression: Stomatitis, Viral illness, - PA / GAS TECHNICIAN / Resident Statement MD/DO has reviewed & agrees with the documentation as recorded. - Scribe Statement The provider has reviewed the documentation as recorded by the Scribe Emilee Zimmer All medical record entries made by the Scribe were at my direction and personally dictated by me. I have reviewed the chart and agree that the record accurately reflects my personal performance of the history, physical exam, medical decision making, and the department course for this patient. I have also personally directed, reviewed, and agree with the discharge instructions and disposition.
== END 2017-08-16 12:15 | disposition home or self-care (01) ==
LOC: C.ER 10:08
DX: O98.513 Other viral diseases complicating pregnancy, third trimester (principal); K12.1 Other forms of stomatitis; B34.9 Viral infection, unspecified; Z3A.29 29 weeks gestation of pregnancy

== ENCOUNTER 2017-10-17 19:52 | Emergency (ER) | payer BC ==
--- NOTE | 2017-10-17 20:32 | OBDCSUM ---
Datetime: 10/17/2017 20:30 Discharged to, Provider: Home Follow up at, Provider: Dr Finnegan Disch Instr Activity: Normal activity Disch Instr Diet: Regular Discharge Instructions, Provider: Routine instructions given Discharge Diagnosis, Provider: Term Delivered Discharge Time: 10/17/2017 20:30 Follow up in weeks, Provider: 1 week Disch Referrals: None Contraception discussed, Prov: Yes Discharge Comment, Provider: if ctx, lof, vb, pain, fever, chills, go to nearest er follow up with dr kaur 1 week
--- NOTE | 2017-10-17 20:32 | OBHP ---
Datetime: 10/17/2017 20:26 IP Adm Impression: Term, intrauterine IP Admit Plan: Discharge home Admit Comment, IP Provider: 37 y/o @ 37.1 wks GA c/o of ctx since 4am irregular 02/09 denies lof, vb, +FM Ante: pnc Dr Burnham OB: SAB x 1, x 3 FTlargest baby 7lbs SPA THERAPIST: Denies hx of abnormal pap, fibroids, ovarian cyst, STI PMH: Denies PSH: DXC FHX: denies MEDS: PNV SHX: negative etoh/tobacco/drugs A/P @ 37.1 wks GA not in labor with maternal and reassuring well being -dc home -labor precautions -follow up 1 week in clinic Pelvic Type - PN: Adequate Extremities - PN: Normal Abdomen - PN: Normal Back - PN: Normal Breast - PN: Not Done Lungs - PN: Normal Heart - PN: Normal Thyroid - PN: Normal Neurologic - PN: Normal HEENT - PN: Normal General - PN: Normal Presentation-Admit: Vertex FHR - Baseline A Provider: 135 Membranes, Provider: Intact Contraction Comments Provider: irregular Gestation - Est Wks by US: 37.1 EGA AdmitDate IP: 37.1 IP Chief Complaint: Uterine contractions NICHD Variability Prov Fetus A: Moderate 6-25bpm FHR Category Provider Fetus A: Category I NICHD Decel Fetus A IP Provider: None Dilatation, Provider: 0 Effacement, Provider: 0 Station, Provider: -3 Genitourinary Exam: Normal DTRs - PN: Normal
[2017-10-18 00:48] VITALS: BP 121/75; PULSE 100
== END 2017-10-17 20:46 | disposition home or self-care (01) ==
LOC: C.EROB 19:52
DX: O47.1 False labor at or after 37 completed weeks of gestation (principal); Z3A.37 37 weeks gestation of pregnancy

== ENCOUNTER 2017-11-03 09:07 | Emergency (ER) | payer BC ==
[2017-11-03 14:20] VITALS: PULSE 89
--- NOTE | 2017-11-03 22:54 | OBHP ---
Datetime: 11/03/2017 10:00 IP Adm Impression: Term, intrauterine ; No Active Labor; Intact Membranes IP Admit Plan: Discharge home Admit Comment, IP Provider: 37 y.o. , LMP unsure,, CRISTINA 11/06/17, EGA 39w 3d c/o ctx, onset 09 00 hours, every 4-7 minutes, pain scale 7/10. (+) AFM; denies LOF, VB. issues: AMA P Ob: x 3: 2005, female; 2006, male; 2010, female - all 6+lb. 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 Denies h/o fibroids, ovarian cysts, STIs PMH: denies PSH: denies NKDA Meds: PNV Soc Hx: denies tobacco, illicit drug or EtOH use. x 4 years. Currently unemployed Fam Hx: Mother alive 64 y.o. - no med issues. Father age 46 - S/P "accident" P.E.: as above. Petite, in NAD. Awake, alert, oriented to time, person and place. Pleasant and co operative Assessment: 39 y.o. P3013, 39w 3d, not in labor. Category 1 tracing. Clinically stable Plan: 1) Discharge home 2) Reviewed S/S labor 3) Keep scheduled appointment Pelvic Type - PN: Adequate Extremities - PN: Normal Abdomen - PN: Normal Back - PN: Normal Breast - PN: Not Done Lungs - PN: Normal Heart - PN: Normal Thyroid - PN: Not Done Neurologic - PN: Normal HEENT - PN: Normal General - PN: Normal Presentation-Admit: Vertex FHR - Baseline A Provider: 135 Contraction Comments Provider: irregular Comments, ACOG Physical Exam: Abdomen: Gravid. soft. Non tender in all quadrantsFundal height 39 cm All other systems reviewed and are negative Gestation - Est Wks by US: 39w 3d EGA AdmitDate IP: 39.3 Vital Signs Provider: Reviewed; Within Normal Limits IP Chief Complaint: Uterine contractions NICHD Variability Prov Fetus A: Moderate 6-25bpm NICHD Accel Fetus A IP Provider: 15X15 FHR Category Provider Fetus A: Category I NICHD Decel Fetus A IP Provider: None Dilatation, Provider: 2 Effacement, Provider: 30 Station, Provider: -3 Genitourinary Exam: Normal DTRs - PN: Not Done
== END 2017-11-03 09:59 | disposition home or self-care (01) ==
LOC: C.EROB 09:07
DX: O47.1 False labor at or after 37 completed weeks of gestation (principal); Z3A.39 39 weeks gestation of pregnancy

== ENCOUNTER 2017-11-06 06:45 | Inpatient (IN) | payer BC ==
[2017-11-06 06:59] VITALS: BMI 30.9
[2017-11-06] MEDS ORDERED: Oxytocin 30 UNIT 30 UNITS/500 ML BAG IV PRN (07:54)
[2017-11-06] MEDS ORDERED: Lactated Ringer's 1,000 ML IV SCH ×2 (08:00)
[2017-11-06] MEDS ORDERED: Oxytocin 30 UNIT 30 UNITS/500 ML BAG IV ONE (08:17)
[2017-11-06 08:22] LABS: BASO # 0.1 K/uL (0.0-0.2); BASO % 0.7 % (0.0-2.0); EOS % 10.5 % (0.0-4.0); HEMOGLOBIN 11.9 g/dL (11.0-16.0); LYMPH # 2.2 K/uL (1.0-4.3); LYMPH % 22.6 % (20.0-40.0); MEAN CORPUSCULAR HEMOGLOBIN 29.1 pg (27.0-31.0); MEAN PLATELET VOLUME 11.1 fL (7.2-11.7); MONO # 0.5 K/uL (0.0-0.8); NEUT # 5.9 K/uL (1.8-7.0); NEUT % 61.2 % (50.0-75.0); RBC 4.08 Mil/uL (3.80-5.20); RED CELL DISTRIBUTION WIDTH 14.6 % (11.5-14.5); WHITE BLOOD COUNT 9.7 K/uL (4.8-10.8)
[2017-11-06 08:23] LABS: MEAN CELL VOLUME 85.7 fL (81.0-99.0)
[2017-11-06 08:33] LABS: SQUAMOUS EPITHIAL 5 /hpf (0-5); URINE BACTERIA RARE (<OCC); URINE BILIRUBIN NEGATIVE (NEGATIVE); URINE BLOOD 2+ (NEGATIVE); URINE CLARITY Hazy (Clear); URINE COLOR Yellow (YELLOW); URINE GLUCOSE (UA) NORMAL (Normal); URINE LEUKOCYTE ESTERASE 3+ Leu/uL (Negative); URINE NITRATE NEGATIVE (NEGATIVE); URINE PROTEIN NEGATIVE (NEGATIVE); URINE UROBILINOGEN NORMAL mg/dL (0.2-1.0)
--- NOTE | 2017-11-06 08:36 | OBHP ---
Datetime: 11/06/2017 08:14 IP Adm Impression: Term, intrauterine ; Active labor; Intact Membranes IP Admit Plan: Admit to unit; Initiate labor augmentation protocol Admit Comment, IP Provider: Patient seen, interviewed and examined at 0740 hours 39 y.o. , LMP unsure, CRISTINA 11/06/17, EGA 40 weeks, confirmed by sono 06/16/17 at 19w 4d, C/O s tronger CTX as of 0100 hours; now Q 3-4 minutes, pain scale 7/10. (+) AFM; denies LOF, VB. care: Pvt , Dr. Kain AWAN; anemia. No other issues P Ob: x 3: 2005, female; 2006, male; 2010, female - all 6+lb. 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 Denies h/o fibroids, ovarian cysts, STIs PMH: denies PSH: denies NKDA Meds: PNV Soc Hx: denies tobacco, illicit drug or EtOH use. x 4 years. Currently unemployed Fam Hx: Mother alive 64 y.o. - no med issues. Father age 46 - S/P "accident" P.E.: as above. Petite, in NAD. Awake, alert, oriented to time, person and place. Pleasant and co operative. Accompanied by Assessment: 39 y.o. , 40 weeks, prolonged latent phase of labor. GBS (-). Category 1 trac ing. D/W patient: augmentaitonwith pitocin. Also discussed pain management options. Patient express ed an understanding and agrees. No questions offered. Clincally stable. Plan: 1) Admit 2) NPO 3) IVFs 4) Continuous EFM 5) Admission labs 6) Pitocin 7) Pain management, upon request 8) Anticipate vaginal delivery Pelvic Type - PN: Adequate Extremities - PN: Normal Abdomen - PN: Normal Back - PN: Normal Breast - PN: Not Done Lungs - PN: Normal Heart - PN: Normal Thyroid - PN: Not Done Neurologic - PN: Normal HEENT - PN: Normal General - PN: Normal Weight - Estimated: 3405 Presentation-Admit: Vertex FHR - Baseline A Provider: 140 Contraction Comments Provider: irregular Comments, ACOG Physical Exam: Abdomen: Gravid. Soft. Non tender in all quadrants. Fundal height 38 c m All other systems reviewed and are negative Gestation - Est Wks by US: 40.0 IP Hx Assessment: The History has been Reviewed and is Current EGA AdmitDate IP: 40.0 Vital Signs Provider: Reviewed IP Chief Complaint: Uterine contractions NICHD Variability Prov Fetus A: Moderate 6-25bpm NICHD Accel Fetus A IP Provider: 15X15 FHR Category Provider Fetus A: Category I NICHD Decel Fetus A IP Provider: None Dilatation, Provider: 4 Effacement, Provider: 50 Station, Provider: -3 Genitourinary Exam: Normal DTRs - PN: Not Done
[2017-11-06 08:38] LABS: ALBUMIN 3.3 g/dL (3.5-5.0); ALT/SGPT 20 U/L (9-52); AST/SGOT 18 U/L (14-36); BLOOD UREA NITROGEN 8 mg/dL (7-17); CALCIUM 8.6 mg/dl (8.6-10.4); GFR AFRICAN-AMERICAN > 60; GFR NON-AFRICAN AMERICAN > 60
--- NOTE | 2017-11-06 09:14 | OBADHP ---
Datetime: 11/06/2017 08:14 Admit Comment, IP Provider: Patient seen, interviewed and examined at 0740 hours 39 y.o. , LMP unsure, CRISTINA 11/06/17, EGA 40 weeks, confirmed by sono 06/16/17 at 19w 4d, C/O s tronger CTX as of 0100 hours; now Q 3-4 minutes, pain scale 7/10. (+) AFM; denies LOF, VB. care: Pvt , Dr. Kain AWAN; anemia. No other issues P Ob: x 3: 2005, female; 2006, male; 2010, female - all 6+lb; all at [facility] . 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 Denies h/o fibroids, ovarian cysts, STIs PMH: denies PSH: denies NKDA Meds: PNV Soc Hx: denies tobacco, illicit drug or EtOH use. x 4 years. Currently unemployed Fam Hx: Mother alive 64 y.o. - no med issues. Father age 46 - S/P "accident" P.E.: as above. Petite, in NAD. Awake, alert, oriented to time, person and place. Pleasant and co operative. Accompanied by Assessment: 39 y.o. , 40 weeks, prolonged latent phase of labor. GBS (-). Category 1 trac ing. D/W patient: augmentaitonwith pitocin. Also discussed pain management options. Patient express ed an understanding and agrees. No questions offered. Clincally stable. Plan: 1) Admit 2) NPO 3) IVFs 4) Continuous EFM 5) Admission labs 6) Pitocin 7) Pain management, upon request 8) Anticipate vaginal delivery Pelvic Type - PN: Adequate Extremities - PN: Normal Abdomen - PN: Normal Back - PN: Normal Breast - PN: Not Done Lungs - PN: Normal Heart - PN: Normal Thyroid - PN: Not Done Neurologic - PN: Normal HEENT - PN: Normal General - PN: Normal Weight - Estimated: 3405 Presentation-Admit: Vertex FHR - Baseline A Provider: 140 Contraction Comments Provider: irregular Comments, ACOG Physical Exam: Abdomen: Gravid. Soft. Non tender in all quadrants. Fundal height 38 c m All other systems reviewed and are negative Gestation - Est Wks by US: 40.0 IP Hx Assessment: The History has been Reviewed and is Current Vital Signs Provider: Reviewed IP Chief Complaint: Uterine contractions NICHD Variability Prov Fetus A: Moderate 6-25bpm NICHD Accel Fetus A IP Provider: 15X15 FHR Category Provider Fetus A: Category I NICHD Decel Fetus A IP Provider: None Dilatation, Provider: 4 Effacement, Provider: 50 Station, Provider: -3 Genitourinary Exam: Normal DTRs - PN: Not Done EGA AdmitDate IP: 40.0 IP Adm Impression: Term, intrauterine ; Active labor; Intact Membranes IP Admit Plan: Admit to unit; Initiate labor augmentation protocol Datetime: 10/17/2017 20:26 Membranes, Provider: Intact
[2017-11-06] MEDS ORDERED: Nalbuphine 20 mg/ml Inj (1 ml) IVP PRN (09:15)
[2017-11-06] MEDS ORDERED: Promethazine 25 MG in Sodium Chloride 0.9% 50 ML IVPB ONE (10:00)
--- NOTE | 2017-11-06 10:29 | OBPN ---
Datetime: 11/06/2017 10:24 IP Progress Impression: Normal progression of labor IP Procedures: Artificial ROM; Sterile Vag Exam IP Progress Plan: Continue present management; Anticipate Vaginal Delivery Membranes, Provider: Ruptured Amniotic Fluid Color, Provider: Clear Contraction Comments Provider: 2 FHR - Baseline A Provider: 130 Gestation - Est Wks by US: 40.0 Presentation-Admit: Vertex IP Progress Note Comment: Patient requesting epidural; S/P IV nubain 0930 hours Cervical exam as above. Assessment: 37 y.o. P3013, 40 week, near end of Stage 1 of labor. Category 1 tracing. Clinically s table. Plan: 1) Anticipate vaginal delivery 2) Notify peds Vital Signs Provider: Reviewed; Within Normal Limits NICHD Accel Fetus A IP Provider: 10X10 FHR Category Provider Fetus A: Category I Dilatation, Provider: 9 Effacement, Provider: 100 Station, Provider: 0 NICHD Decel Fetus A IP Provider: None Datetime: 11/06/2017 08:14 Weight - Estimated: 3405 NICHD Variability Prov Fetus A: Moderate 6-25bpm
[2017-11-06] MEDS ORDERED: Benzocaine/Menthol 20%-0.5% Topical Spray (60 ml) TOP PRN (11:23)
[2017-11-06] MEDS ORDERED: Oxycodone/Acetaminophen 5/325 mg Tab PO PRN (11:23)
--- NOTE | 2017-11-06 11:35 | OBDS ---
DELIVERY PERSONNEL Delivery Doctor: Gino Coyne MD Video Game Programmer: Franklin Sheikh RN MATERNAL INFORMATION Delivery Anesthesia: None Placenta Cultured: No Maternal Complications: Other Other Maternal Complications: EMPERATRIZ RN Comments: One true knot in umbilical cord Provider Comments: Uncomplicated vaginal delivery, live female infant , direct OA over intact perine um; weight 7lb 3oz, 's 9/9. placed on mothe's abdomen. True knot noted in umbilical cord. spontaneous delivery of placenta - grossly intact, 3 vessel cord. Uterine exploration performed; uterus contracted and firm. Cervix, vagina, perineum inspected - n o lacerations. Patient tolerated procedure well. Infant, mother and father all bonding. Mother and in altagracia in stable condition. LABOR SUMMARY EDC: 11/06/2017 00:00 No. Babies in Womb: 1 Attempted: No Labor Anesthesia: IV Sedation LABOR INFORMATION Reason for Induction: Not Applicable Onset of Labor: 11/06/2017 01:00 Complete Dilatation: 11/06/2017 10:31 Oxytocin: Augmentation Group B Beta Strep: Negative Antibiotics # of Doses: 0 Antibiotics Time of Last Dose: 0 Steroids Given: None Reason Steroids Not Administered: Not Applicable MEMBRANES Membranes Rupture Method: Artificial Rupture of Membranes: 11/06/2017 10:20 Length of Rupture (hrs): 0.57 Amniotic Fluid Color: Bloody Amniotic Fluid Amount: Small Amniotic Fluid Odor: Normal STAGES OF LABOR Stage 1 hrs: 9 Stage 1 min: 31 Stage 2 hrs: 0 Stage 2 min: 23 Stage 3 hrs: 0 Stage 3 min: 6 Total Time in Labor hrs: 10 Total Time in Labor min: 0 VAGINAL DELIVERY Episiotomy: None Laceration Extension: N/A Laceration Type: None Laceration Repair: Not Applicable Initial Vag Sponge Count: 10 Final Vag Sponge Count: 10 Initial Vag Sharps Count: 0 Final Vag Sharps Count: 0 Sponge Count Correct: Yes Sharps Count Correct: Yes Count Comment: correct BABY A INFORMATION Delivery Date/Time: 11/06/2017 10:54 Method of Delivery: Vaginal Born in Route : No : N/A Forceps: N/A Vacuum Extraction: N/A Shoulder Dystocia : No SHOULDER DYSTOCIA BABY A Infant Delivery Date/Time: 11/06/2017 10:54 PRESENTATION/POSITION BABY A Presentation: Cephalic Cephalic Presentation: Vertex Vertex Position: Direct occiput anterior Breech Presentation: N/A PLACENTA INFORMATION BABY A Placenta Delivery Time : 11/06/2017 11:00 Placenta Method of Delivery: Spontaneous Placenta Status: Delivered SCORES BABY A Heart Rate 1 min: >100 bpm Resp Effort 1 min: Good Cry Reflex Irritability 1 min: Cough or Sneeze or Pulls Away Muscle Tone 1 min: Active Motion Color 1 min: Body [place], Extremities Blue SCORE 1 MIN: 9 Heart Rate 5 min: >100 bpm Resp Effort 5 min: Good Cry Reflex Irritability 5 min: Cough or Sneeze or Pulls Away Muscle Tone 5 min: Active Motion Color 5 min: Body [place], Extremities Blue Resuscitation Effort 5 min: N/A SCORE 5 MIN: 9 INFORMATION BABY A Gestational Age at Delivery: 40.0 Gestational Status: Term Outcome : Liveborn Condition : Stable Sex: Female IDENTIFICATION/MEDS BABY A ID Band Number: [id number] ID Band Location: Left Leg; Left Arm Sensor Applied: Yes Sensor Number: [id number] Sensor Location : Cord Clamp WEIGHT/LENGTH BABY A Birthweight (gms): 3280 Infant Weight (lb): 7 Weight (oz): 4 Infant Length Inches: 19.75 Infant Length cms: 50.2 CORD INFORMATION BABY A No. Cord Vessels: 3 Nuchal Cord : N/A True Knot: 1 Cord Blood Taken: N/A Infant Suction: Mouth
--- NOTE | 2017-11-07 07:36 | OBPPN ---
Datetime: 11/07/2017 07:34 PP Pain Prov: Within normal limits PP Nausea Prov: Denies PP Flatus Prov: Yes PP Abdomen/Uterus Prov: Normal PP Lochia Prov: Normal PP Extremities Prov: Normal PP Comments Phys Exam Prov: fudsus below umb ext no edema,no calf ten PP Impression Prov: Normal progression PP Plan Prov: Continue present management PP Progress Note Prov: pt was seen at bed side, pain under control,no n/v, tolerating deit,voiding,m in lochia, flatu[place]+ ppd#1 s/p cont pp care cxont painm brenda encourage ambulation Vital Signs Provider PP: Reviewed; Within Normal Limits
[2017-11-07 08:32] LABS: BASO # 0.1 K/uL (0.0-0.2); BASO % 0.7 % (0.0-2.0); EOS # 1.1 K/uL (0.0-0.7); EOS % 11.2 % (0.0-4.0); LYMPH # 1.9 K/uL (1.0-4.3); LYMPH % 18.6 % (20.0-40.0); MEAN CELL VOLUME 85.9 fL (81.0-99.0); MEAN CORPUSCULAR HEMOGLOBIN 29.3 pg (27.0-31.0); MEAN CORPUSCULAR HGB CONC 34.1 g/dL (33.0-37.0); MEAN PLATELET VOLUME 11.2 fL (7.2-11.7); MONO # 0.4 K/uL (0.0-0.8); MONO % 3.4 % (0.0-10.0); NEUT # 6.8 K/uL (1.8-7.0); NEUT % 66.1 % (50.0-75.0); RBC 3.75 Mil/uL (3.80-5.20); RED CELL DISTRIBUTION WIDTH 14.7 % (11.5-14.5); WHITE BLOOD COUNT 10.2 K/uL (4.8-10.8)
[2017-11-07] MEDS: Multiple Vitamins Tab PO SCH (11:19)
[2017-11-08 08:30] VITALS: BP 109/80; PULSE 90; RESP 18; O2SAT 100
[2017-11-08] MEDS: Multiple Vitamins Tab PO SCH (10:08)
[2017-11-08 16:55] VITALS: TEMP 98.6
--- NOTE | 2017-11-08 18:23 | OBPPN ---
Datetime: 11/08/2017 07:52 PP Pain Prov: Within normal limits PP Nausea Prov: Denies PP Flatus Prov: Yes PP BM Prov: No PP Heart Prov: Normal PP Lungs Prov: Normal PP Abdomen/Uterus Prov: Normal PP Lochia Prov: Normal PP Extremities Prov: Normal PP Progress Prov: Normal PP Comments Phys Exam Prov: Abdomen: soft, nontender, fundus firm 1 fingerbreath below umbilicus PP Impression Prov: Normal progression PP Plan Prov: Discharge PP Progress Note Prov: Patient seen and examined at bedside and in no acute distress. Patient says s he has mild lower abdominal pain which she rates 4/10. Patient has no nausea or vomiting and is eatin g well. Patient is walking around well has is passing gas, but has had no bowel movement. Patient is changing her pad every four hours. Patient is breast and bottle feeding. Labs 11/07: 10.2>11/32.2<149 VS: T:97, BP: 105/66 P:71 PE: Gen: NAD Heart: RRR, +S1, S2 Lungs: CTABL Abdomen: soft, nontender, fundus firm 1 fingerbreath below umbilicus Ext: no clubbing, cyanosis, or edema A_P: 37 y/o F s/p at 40 weeks PPD#2 2. pain management with Percocet 3. continue ambulation and hydration 4. continue breast feeding 5. discharge home 6. discussed with Dr. Kenneth Jones, PGY1 Patient examined.agree with resident exam, assessment and plan Vital Signs Provider PP: Reviewed
--- NOTE | 2017-11-08 18:26 | OBDCSUM ---
Datetime: 11/08/2017 10:37 Discharged to, Provider: Home Follow up at, Provider: Dr. Finnegan Disch Instr Activity: Normal activity Disch Instr Diet: Regular Discharge Instructions, Provider: Routine instructions given Discharge Diagnosis, Provider: Postterm Delivery Discharge Time: 11/08/2017 12:00 Follow up in weeks, Provider: December 16, 2017 Disch Referrals: None Disch Activity Restrictions: No exercising; No lifting; No driving; Minimize walking; Minimize stair -climbing; No sexual activity; Nothing in vagina - [place], tampons, douche Discharge Comment, Provider: follow up in clinic in 6 weeks Discharge Diagnosis Prov Other: s/p vaginal delivery
== END 2017-11-08 12:46 | disposition home or self-care (01) | DRG 775 ==
LOC: C.EROB 06:45 → C.4D 07:42 → C.4M 14:03
PROVIDERS: ADMIT Obstetrics & Gynecology; ATTEND Obstetrics & Gynecology
PROC: 10E0XZZ Delivery of Products of Conception, External Approach (ICD-10-PCS; principal; 2017-11-06)
PROC: 10907ZC Drainage of Amniotic Fluid, Therapeutic from Products of Conception, Via Natural or Artificial Opening (ICD-10-PCS; 2017-11-06)
DX: O48.0 Post-term pregnancy (principal); O63.9 Long labor, unspecified; O69.2XX0 Labor and delivery complicated by other cord entanglement, with compression, not applicable or unspecified; Z3A.40 40 weeks gestation of pregnancy; Z37.0 Single live birth